=== PATIENT | female | born 1930 | race African-American/Black ===

== ENCOUNTER 2020-08-09 10:29 | Emergency (ER) | payer MEDICARE, MEDICAID ==
[~2020-08-09] VITALS: Ht 170.2 cm; Wt 82.0 kg
[2020-08-09 11:46] LABS: CHLORIDE 111 mEq/L (98-107)
[2020-08-09 13:16] LABS: BASOPHILS % 1.3 % (0.0-2.0); EOSINOPHILS % 9.3 % (0.0-5.0); HEMATOCRIT. 38.9 % (36.0-48.0); HEMOGLOBIN. 12.4 g/dL (12.0-16.0); LYMPHOCYTES % 25.5 % (20.0-50.0); MEAN CORPUSCULAR HEMOGLOBIN 26.4 pg (28.0-32.0); MEAN CORPUSCULAR VOLUME 82.4 fL (81.0-99.0); MONOCYTES % 5.1 % (2.0-8.0); NEUTROPHILS % 58.8 % (40.0-76.0); PLATELET 179 x1000/uL (130-400); RED BLOOD CELL COUNT 4.72 mill/uL (4.2-5.4); RED CELL DISTRIBUTION WIDTH 14.8 % (11.6-14.6)
[2020-08-09 14:37] VITALS: BP 135/75
== END 2020-08-09 15:43 | disposition home or self-care (01) ==
LOC: ER 10:45
DX: N93.9 Abnormal uterine and vaginal bleeding, unspecified (principal); R73.9 Hyperglycemia, unspecified; G82.22 Paraplegia, incomplete; I49.3 Ventricular premature depolarization
CPT/HCPCS: 36415; 76856; 80053; 85025; 93005; 99285

== ENCOUNTER 2021-03-07 18:22 | Inpatient (IN) | payer MEDICARE, MEDICAID ==
[~2021-03-07] VITALS: Ht 172.7 cm; Wt 83.5 kg
[2021-03-07] MEDS ORDERED: ACETAMINOPHEN 325MG TABLET PO STA (19:51)
[2021-03-07] MEDS ORDERED: VANCOMYCIN 1 G PREMIX 200 ML IV ONE (20:00)
[2021-03-07] MEDS ORDERED: SODIUM CHLORIDE 0.9% 1000ML BAG (SEPSIS BOLUS) IV ONE (20:00)
[2021-03-07] MEDS ORDERED: PIPERACILLIN/TAZ 3.375G PREMIX 50 ML IV ONE (20:00)
[2021-03-07 21:14] LABS: HEMATOCRIT. 31.4 % (36.0-48.0); HEMOGLOBIN. 10.2 g/dL (12.0-16.0); MEAN CORPUSCULAR VOLUME 82.9 fL (81.0-99.0); MEAN PLATELET VOLUME 8.8 fl (7.4-10.4); PLATELET 100 x1000/uL (130-400); RED BLOOD CELL COUNT 3.79 mill/uL (4.2-5.4); RED CELL DISTRIBUTION WIDTH 14.3 % (11.6-14.6)
[2021-03-07 21:22] LABS: CHLORIDE 116 mEq/L (98-107)
[2021-03-07 21:26] LABS: INR 1.4; PROTHROMBIN TIME 14.4 sec (9.6-11.0)
[2021-03-07] MEDS ORDERED: MAGNESIUM 2 G PREMIX 50 ML IV ONE (21:30)
[2021-03-07 21:51] LABS: PLATELET ESTIMATE DECREASED
[2021-03-07] MEDS ORDERED: HYDROCORTISONE SOD SUCCINATE 100 MG/2 ML VIAL IV ONE (22:45)
[2021-03-07] MEDS ORDERED: SODIUM CHLORIDE 0.9% 100 ML IV ONE (22:45)
[2021-03-07 22:58] LABS: CLARITY URINE TURBID (CLEAR); COLOR URINE YELLOW (YELLOW); KETONES URINE TRACE (NEGATIVE); LEUKOCYTE ESTERASE URINE 3+ (NEGATIVE); NITRITE URINE NEGATIVE (NEGATIVE); OCCULT BLOOD URINE 3+ (NEGATIVE); PH URINE 7.5 (4.5-8.0); PROTEIN URINE 1+ (NEGATIVE); SPECIFIC GRAVITY URINE 1.015 (1.005-1.030)
[2021-03-07] MEDS ORDERED: NOREPINEPHRINE 8MG/250ML PMX 250 ML IV ONE (23:15)
[2021-03-08] MEDS ORDERED: NOREPINEPHRINE 8MG/250ML PMX 250 ML IV PRN (06:00)
[2021-03-08] MEDS ORDERED: ONDANSETRON HCL 4MG/2ML INJ IV PRN (08:30)
[2021-03-08] MEDS ORDERED: CEFEPIME 1,000 MG in DEXTROSE 5% WATER 50 ML IV SCH (08:30)
[2021-03-08] MEDS: DEXTROSE 5% WATER 1,000 ML IV SCH ×2 (09:00→22:30)
[2021-03-08] MEDS ORDERED: NALOXONE HCL 0.4MG/ML VIAL IV PRN (09:15)
[2021-03-08] MEDS: METRONIDAZOLE 500 MG PREMIX 100 ML IV SCH ×2 (09:24→19:04)
[2021-03-08] MEDS: TRAMADOL 50MG TABLET PO PRN (09:24)
[2021-03-08] MEDS ORDERED: POTASSIUM CHLORIDE INJ 40 MEQ in DEXT 5% WATER 250 ML IV NR (11:00)
[2021-03-08] MEDS: CEFEPIME 1,000 MG in DEXTROSE 5% WATER 50 ML IV SCH (12:02)
[2021-03-08] MEDS: ACETAMINOPHEN 325MG TABLET PO PRN (20:30)
[2021-03-08 22:00] VITALS: BP 94/54
[2021-03-08 22:50] VITALS: BP 89/48
[2021-03-09] VITALS (20 sets, daily range): BP systolic 64–139; BP diastolic 38–81
[2021-03-09] MEDS ORDERED: DOPAMINE 400MG/250ML PREMIX 250 ML IV PRN (01:30)
[2021-03-09] MEDS: METRONIDAZOLE 500 MG PREMIX 100 ML IV SCH ×3 (01:56→17:00)
[2021-03-09] MEDS: ACETAMINOPHEN 325MG TABLET PO PRN (03:26)
[2021-03-09 06:53] LABS: HEMATOCRIT. 32.3 % (36.0-48.0); HEMOGLOBIN. 10.2 g/dL (12.0-16.0); MEAN CORPUSCULAR HEMOGLOBIN 26.7 pg (28.0-32.0); MEAN CORPUSCULAR VOLUME 84.5 fL (81.0-99.0); MEAN PLATELET VOLUME 9.6 fl (7.4-10.4); PLATELET 78 x1000/uL (130-400); RED BLOOD CELL COUNT 3.83 mill/uL (4.2-5.4); RED CELL DISTRIBUTION WIDTH 15.4 % (11.6-14.6)
[2021-03-09 07:19] LABS: CHLORIDE 117 mEq/L (98-107)
[2021-03-09] MEDS: DEXTROSE 5% WATER 1,000 ML IV SCH (09:26)
[2021-03-09] MEDS: CEFEPIME 1,000 MG in DEXTROSE 5% WATER 50 ML IV SCH (09:31)
[2021-03-09] MEDS ORDERED: POTASSIUM CHLORIDE 20MEQ TABLET SR PO NR (11:00)
[2021-03-09] MEDS ORDERED: AMIKACIN 500MG in SODIUM CHLORIDE 0.9% 100ML IV SCH (11:00)
[2021-03-09 14:52] LABS: PLATELET ESTIMATE DECREASED
[2021-03-09] MEDS ORDERED: NOREPINEPHRINE 8 MG in DEXTROSE 5% WATER 250 ML IV PRN (15:15)
[2021-03-09] MEDS ORDERED: CEFTRIAXONE 2 G PREMIX 50 ML IV SCH (20:00)
[2021-03-09] MEDS: TRAMADOL 50MG TABLET PO PRN (20:28)
[2021-03-09] MEDS: CEFTRIAXONE 2 G in DEXTROSE 5% WATER 50 ML IV SCH (23:00)
[2021-03-10] VITALS (12 sets, daily range): BP systolic 110–154; BP diastolic 59–87
[2021-03-10] MEDS ORDERED: EFEX1 PO (00:35)
[2021-03-10] MEDS ORDERED: MIRT-89 MT (00:35)
[2021-03-10] MEDS ORDERED: LOVA20TA2 PO (00:35)
[2021-03-10] MEDS ORDERED: OXYC10TA48 MT (00:35)
[2021-03-10] MEDS ORDERED: LORA-249 PO (00:35)
[2021-03-10] MEDS ORDERED: TIZA4TAB5 MT (00:35)
[2021-03-10] MEDS ORDERED: ERGO50CA PO (00:35)
[2021-03-10] MEDS ORDERED: GABA-529 PO (00:35)
[2021-03-10] MEDS: TRAMADOL 50MG TABLET PO PRN ×2 (02:33→20:43)
[2021-03-10] MEDS: DEXTROSE 5% WATER 1,000 ML IV SCH ×2 (02:33→20:44)
[2021-03-10 07:19] LABS: HEMATOCRIT. 30.3 % (36.0-48.0); HEMOGLOBIN. 9.9 g/dL (12.0-16.0); MEAN CORPUSCULAR HEMOGLOBIN 26.9 pg (28.0-32.0); MEAN CORPUSCULAR VOLUME 82.2 fL (81.0-99.0); MEAN PLATELET VOLUME 9.6 fl (7.4-10.4); PLATELET 73 x1000/uL (130-400); RED BLOOD CELL COUNT 3.68 mill/uL (4.2-5.4); RED CELL DISTRIBUTION WIDTH 14.8 % (11.6-14.6)
[2021-03-10 08:36] LABS: CHLORIDE 114 mEq/L (98-107)
[2021-03-10] MEDS ORDERED: NALOXONE HCL 0.4MG/ML VIAL IV PRN (11:00)
[2021-03-10] MEDS ORDERED: POTASSIUM CHLORIDE 20MEQ TABLET SR PO NR (11:00)
[2021-03-10 11:20] LABS: PLATELET ESTIMATE DECREASED
[2021-03-10] MEDS: DOCUSATE SODIUM 100MG CAPSULE PO SCH (16:15)
[2021-03-10] MEDS: CEFTRIAXONE 2 G in DEXTROSE 5% WATER 50 ML IV SCH (22:19)
[2021-03-11] VITALS (12 sets, daily range): BP systolic 132–168; BP diastolic 69–122
[2021-03-11] MEDS: DEXTROSE 5% WATER 1,000 ML IV SCH ×2 (03:40→10:33)
[2021-03-11 08:51] LABS: BASOPHILS % 0.2 % (0.0-2.0); EOSINOPHILS % 4.2 % (0.0-5.0); HEMATOCRIT. 33.4 % (36.0-48.0); HEMOGLOBIN. 10.7 g/dL (12.0-16.0); MEAN CORPUSCULAR HEMOGLOBIN 26.5 pg (28.0-32.0); MEAN CORPUSCULAR VOLUME 82.6 fL (81.0-99.0); MEAN PLATELET VOLUME 9.4 fl (7.4-10.4); MONOCYTES % 7.8 % (2.0-8.0); NEUTROPHILS % 74.8 % (40.0-76.0); PLATELET 80 x1000/uL (130-400); RED BLOOD CELL COUNT 4.04 mill/uL (4.2-5.4); RED CELL DISTRIBUTION WIDTH 14.7 % (11.6-14.6)
[2021-03-11 08:57] LABS: CHLORIDE 109 mEq/L (98-107)
[2021-03-11] MEDS: DOCUSATE SODIUM 100MG CAPSULE PO SCH ×2 (09:00→16:26)
[2021-03-11] MEDS: ZINC SULFATE 220 MG ( 50 ) CAPSULE PO SCH (09:01)
[2021-03-11] MEDS: ASCORBIC ACID 500 MG TABLET PO SCH (09:01)
[2021-03-11] MEDS: MULTIVITAMINS,THER W-MINERALS TABLET PO SCH (09:01)
[2021-03-11] MEDS ORDERED: POTASSIUM CHLORIDE 20MEQ/PACKET PO SCH (10:30)
[2021-03-11] MEDS ORDERED: CLONIDINE 0.1MG TABLET PO PRN (12:15)
[2021-03-11] MEDS: VENLAFAXINE HCL 37.5MG SR CAPSULE 24HR PO SCH (14:45)
[2021-03-11] MEDS: TRAMADOL 50MG TABLET PO PRN (14:45)
[2021-03-11] MEDS ORDERED: HYDROCODONE/ACETAMINOPHEN 10/325MG TABLET PO PRN (18:45)
[2021-03-11] MEDS: OXYCODONE HCL 10MG TABLET SR 12HR PO SCH (18:55)
[2021-03-11] MEDS ORDERED: LORAZEPAM 2MG/ML CPJ IV NR (20:00)
[2021-03-11] MEDS: MIRTAZAPINE 15MG TABLET PO SCH (21:00)
[2021-03-11] MEDS: CEFTRIAXONE 2 G in DEXTROSE 5% WATER 50 ML IV SCH (22:55)
[2021-03-12] VITALS (7 sets, daily range): BP systolic 115–194; BP diastolic 58–90
[2021-03-12] MEDS: DEXTROSE 5% WATER 1,000 ML IV SCH (00:33)
[2021-03-12] MEDS: MULTIVITAMINS,THER W-MINERALS TABLET PO SCH (09:10)
[2021-03-12] MEDS: DOCUSATE SODIUM 100MG CAPSULE PO SCH ×2 (09:11→18:24)
[2021-03-12] MEDS: OXYCODONE HCL 10MG TABLET SR 12HR PO SCH ×3 (09:11→18:24)
[2021-03-12] MEDS: ASCORBIC ACID 500 MG TABLET PO SCH (09:11)
[2021-03-12] MEDS: ZINC SULFATE 220 MG ( 50 ) CAPSULE PO SCH (09:11)
[2021-03-12] MEDS: VENLAFAXINE HCL 37.5MG SR CAPSULE 24HR PO SCH (09:17)
[2021-03-12] MEDS: AMLODIPINE 10MG TABLET PO SCH (12:35)
[2021-03-12] MEDS: MIRTAZAPINE 15MG TABLET PO SCH (20:59)
[2021-03-12] MEDS: CEFTRIAXONE 2 G in DEXTROSE 5% WATER 50 ML IV SCH (20:59)
[2021-03-13] VITALS (7 sets, daily range): BP systolic 105–131; BP diastolic 55–66
[2021-03-13] MEDS: VENLAFAXINE HCL 37.5MG SR CAPSULE 24HR PO SCH (08:58)
[2021-03-13] MEDS: MULTIVITAMINS,THER W-MINERALS TABLET PO SCH (08:58)
[2021-03-13] MEDS: ASCORBIC ACID 500 MG TABLET PO SCH (08:59)
[2021-03-13] MEDS: AMLODIPINE 10MG TABLET PO SCH (08:59)
[2021-03-13] MEDS: DOCUSATE SODIUM 100MG CAPSULE PO SCH ×2 (08:59→18:42)
[2021-03-13] MEDS: ZINC SULFATE 220 MG ( 50 ) CAPSULE PO SCH (08:59)
[2021-03-13] MEDS: OXYCODONE HCL 10MG TABLET SR 12HR PO SCH ×3 (09:00→18:40)
[2021-03-13] MEDS: MIRTAZAPINE 15MG TABLET PO SCH (21:41)
[2021-03-13] MEDS: CEFTRIAXONE 2 G in DEXTROSE 5% WATER 50 ML IV SCH (21:43)
[2021-03-14] VITALS: BP 125/61
[2021-03-14 04:00] VITALS: BP 142/66
[2021-03-14 07:34] LABS: BASOPHILS % 0.3 % (0.0-2.0); HEMATOCRIT. 33.1 % (36.0-48.0); LYMPHOCYTES % 15.8 % (20.0-50.0); MEAN CORPUSCULAR HEMOGLOBIN 26.9 pg (28.0-32.0); MEAN CORPUSCULAR VOLUME 80.8 fL (81.0-99.0); MEAN PLATELET VOLUME 9.4 fl (7.4-10.4); MONOCYTES % 7.9 % (2.0-8.0); PLATELET 148 x1000/uL (130-400); RED BLOOD CELL COUNT 4.09 mill/uL (4.2-5.4); RED CELL DISTRIBUTION WIDTH 14.4 % (11.6-14.6)
[2021-03-14 08:00] VITALS: BP 115/54
[2021-03-14 08:08] LABS: CHLORIDE 106 mEq/L (98-107)
[2021-03-14] MEDS ORDERED: POTASSIUM CHLORIDE 20MEQ TABLET SR PO NR (10:15)
[2021-03-14] MEDS: VENLAFAXINE HCL 37.5MG SR CAPSULE 24HR PO SCH (10:25)
[2021-03-14] MEDS: MULTIVITAMINS,THER W-MINERALS TABLET PO SCH (10:25)
[2021-03-14] MEDS: DOCUSATE SODIUM 100MG CAPSULE PO SCH ×2 (10:26→18:16)
[2021-03-14] MEDS: ASCORBIC ACID 500 MG TABLET PO SCH (10:26)
[2021-03-14] MEDS: ZINC SULFATE 220 MG ( 50 ) CAPSULE PO SCH (10:26)
[2021-03-14] MEDS: AMLODIPINE 10MG TABLET PO SCH (10:27)
[2021-03-14] MEDS: OXYCODONE HCL 10MG TABLET SR 12HR PO SCH ×3 (10:27→18:19)
[2021-03-14 12:00] VITALS: BP 118/61
[2021-03-14 16:00] VITALS: BP 133/61
[2021-03-14 20:00] VITALS: BP 105/61
[2021-03-14] MEDS ORDERED: NALOXONE HCL 0.4MG/ML VIAL IV PRN (20:30)
[2021-03-14] MEDS: CEFTRIAXONE 2 G in DEXTROSE 5% WATER 50 ML IV SCH (21:36)
[2021-03-14] MEDS: MIRTAZAPINE 15MG TABLET PO SCH (21:36)
[2021-03-15] VITALS: BP 107/51
[2021-03-15 04:00] VITALS: BP 117/53
[2021-03-15] MEDS ORDERED: POTASSIUM CHLORIDE 20MEQ TABLET SR PO ONE (07:30)
[2021-03-15 08:00] VITALS: BP 121/57
[2021-03-15] MEDS: VENLAFAXINE HCL 37.5MG SR CAPSULE 24HR PO SCH (08:56)
[2021-03-15] MEDS: MULTIVITAMINS,THER W-MINERALS TABLET PO SCH (08:56)
[2021-03-15] MEDS: ZINC SULFATE 220 MG ( 50 ) CAPSULE PO SCH (08:56)
[2021-03-15] MEDS: ASCORBIC ACID 500 MG TABLET PO SCH (08:56)
[2021-03-15] MEDS: DOCUSATE SODIUM 100MG CAPSULE PO SCH ×2 (08:56→17:21)
[2021-03-15] MEDS: AMLODIPINE 10MG TABLET PO SCH (08:57)
[2021-03-15] MEDS: OXYCODONE HCL 10MG TABLET SR 12HR PO SCH ×3 (08:58→17:24)
[2021-03-15 12:00] VITALS: BP 104/53
[2021-03-15 16:00] VITALS: BP 105/46
[2021-03-15 20:00] VITALS: BP 106/51
[2021-03-15] MEDS: ACETAMINOPHEN 325MG TABLET PO PRN (20:38)
[2021-03-15] MEDS: MIRTAZAPINE 15MG TABLET PO SCH (20:43)
[2021-03-15] MEDS: CEFTRIAXONE 2 G in DEXTROSE 5% WATER 50 ML IV SCH (21:32)
[2021-03-16] VITALS: BP 120/57
[2021-03-16 04:00] VITALS: BP 112/57
[2021-03-16 08:00] VITALS: BP 132/59
[2021-03-16] MEDS: MULTIVITAMINS,THER W-MINERALS TABLET PO SCH (09:59)
[2021-03-16] MEDS: DOCUSATE SODIUM 100MG CAPSULE PO SCH ×2 (09:59→17:31)
[2021-03-16] MEDS: OXYCODONE HCL 10MG TABLET SR 12HR PO SCH ×3 (10:00→17:32)
[2021-03-16] MEDS: VENLAFAXINE HCL 37.5MG SR CAPSULE 24HR PO SCH (10:00)
[2021-03-16] MEDS: ZINC SULFATE 220 MG ( 50 ) CAPSULE PO SCH (10:00)
[2021-03-16] MEDS: AMLODIPINE 10MG TABLET PO SCH (10:01)
[2021-03-16] MEDS: ASCORBIC ACID 500 MG TABLET PO SCH (10:01)
[2021-03-16 12:00] VITALS: BP 111/63
[2021-03-16 13:44] LABS: BASOPHILS % 0.6 % (0.0-2.0); EOSINOPHILS % 5.1 % (0.0-5.0); HEMATOCRIT. 37.6 % (36.0-48.0); LYMPHOCYTES % 13.4 % (20.0-50.0); MEAN CORPUSCULAR HEMOGLOBIN 26.3 pg (28.0-32.0); MEAN CORPUSCULAR VOLUME 82.5 fL (81.0-99.0); MEAN PLATELET VOLUME 8.7 fl (7.4-10.4); MONOCYTES % 6.2 % (2.0-8.0); NEUTROPHILS % 74.7 % (40.0-76.0); PLATELET 275 x1000/uL (130-400); RED BLOOD CELL COUNT 4.56 mill/uL (4.2-5.4); RED CELL DISTRIBUTION WIDTH 14.8 % (11.6-14.6)
[2021-03-16 13:51] LABS: CHLORIDE 105 mEq/L (98-107)
[2021-03-16 16:00] VITALS: BP 98/53
[2021-03-16 20:00] VITALS: BP 105/40
[2021-03-16] MEDS: CEFTRIAXONE 2 G in DEXTROSE 5% WATER 50 ML IV SCH (21:00)
[2021-03-16] MEDS: MIRTAZAPINE 15MG TABLET PO SCH (21:00)
[2021-03-17] VITALS: BP 93/45
[2021-03-17 04:00] VITALS: BP 119/48
[2021-03-17 08:00] VITALS: BP 123/94
[2021-03-17] MEDS: ZINC SULFATE 220 MG ( 50 ) CAPSULE PO SCH (08:37)
[2021-03-17] MEDS: VENLAFAXINE HCL 37.5MG SR CAPSULE 24HR PO SCH (08:37)
[2021-03-17] MEDS: DOCUSATE SODIUM 100MG CAPSULE PO SCH ×2 (08:37→16:28)
[2021-03-17] MEDS: ASCORBIC ACID 500 MG TABLET PO SCH (08:37)
[2021-03-17] MEDS: AMLODIPINE 10MG TABLET PO SCH (08:38)
[2021-03-17] MEDS: MULTIVITAMINS,THER W-MINERALS TABLET PO SCH (08:38)
[2021-03-17] MEDS: OXYCODONE HCL 10MG TABLET SR 12HR PO SCH ×3 (08:39→16:29)
[2021-03-17 12:00] VITALS: BP 115/61
[2021-03-17 16:00] VITALS: BP 107/61
[2021-03-17 20:00] VITALS: BP 105/59
[2021-03-17] MEDS: MIRTAZAPINE 15MG TABLET PO SCH (22:49)
[2021-03-17] MEDS: CEFTRIAXONE 2 G in DEXTROSE 5% WATER 50 ML IV SCH (22:50)
[2021-03-18] VITALS: BP 99/55
[2021-03-18 04:00] VITALS: BP 129/75
[2021-03-18] MEDS: AMLODIPINE 10MG TABLET PO SCH (09:00)
[2021-03-18] MEDS: ASCORBIC ACID 500 MG TABLET PO SCH (09:14)
[2021-03-18] MEDS: ZINC SULFATE 220 MG ( 50 ) CAPSULE PO SCH (09:14)
[2021-03-18] MEDS: VENLAFAXINE HCL 37.5MG SR CAPSULE 24HR PO SCH (09:15)
[2021-03-18] MEDS: MULTIVITAMINS,THER W-MINERALS TABLET PO SCH (09:15)
[2021-03-18] MEDS: OXYCODONE HCL 10MG TABLET SR 12HR PO SCH ×3 (09:16→18:09)
[2021-03-18] MEDS: DOCUSATE SODIUM 100MG CAPSULE PO SCH ×2 (09:17→18:08)
[2021-03-18 20:00] VITALS: BP 110/65
[2021-03-18] MEDS: MIRTAZAPINE 15MG TABLET PO SCH (21:34)
[2021-03-18] MEDS: CEFTRIAXONE 2 G in DEXTROSE 5% WATER 50 ML IV SCH (21:34)
[2021-03-18 23:58] VITALS: BP 97/55
[2021-03-19 05:10] VITALS: BP 111/64
[2021-03-19 08:00] VITALS: BP 114/58
[2021-03-19] MEDS: MULTIVITAMINS,THER W-MINERALS TABLET PO SCH (09:21)
[2021-03-19] MEDS: DOCUSATE SODIUM 100MG CAPSULE PO SCH ×2 (09:21→17:32)
[2021-03-19] MEDS: VENLAFAXINE HCL 37.5MG SR CAPSULE 24HR PO SCH (09:21)
[2021-03-19] MEDS: ASCORBIC ACID 500 MG TABLET PO SCH (09:22)
[2021-03-19] MEDS: AMLODIPINE 10MG TABLET PO SCH (09:23)
[2021-03-19] MEDS: ZINC SULFATE 220 MG ( 50 ) CAPSULE PO SCH (09:23)
[2021-03-19] MEDS: OXYCODONE HCL 10MG TABLET SR 12HR PO SCH ×3 (09:23→17:38)
[2021-03-19 12:00] VITALS: BP 112/65
[2021-03-19 16:00] VITALS: BP 112/90
[2021-03-19 20:00] VITALS: BP 111/61
[2021-03-19] MEDS: CEFTRIAXONE 2 G in DEXTROSE 5% WATER 50 ML IV SCH (21:46)
[2021-03-19] MEDS: MIRTAZAPINE 15MG TABLET PO SCH (21:46)
[2021-03-20] VITALS: BP 116/61
[2021-03-20] MEDS: ACETAMINOPHEN 325MG TABLET PO PRN (01:32)
[2021-03-20 04:00] VITALS: BP 108/52
[2021-03-20 08:00] VITALS: BP 112/63
[2021-03-20] MEDS: DOCUSATE SODIUM 100MG CAPSULE PO SCH ×2 (08:44→17:26)
[2021-03-20] MEDS: VENLAFAXINE HCL 37.5MG SR CAPSULE 24HR PO SCH (08:45)
[2021-03-20] MEDS: AMLODIPINE 10MG TABLET PO SCH (08:46)
[2021-03-20] MEDS: ZINC SULFATE 220 MG ( 50 ) CAPSULE PO SCH (08:46)
[2021-03-20] MEDS: ASCORBIC ACID 500 MG TABLET PO SCH (08:47)
[2021-03-20] MEDS: OXYCODONE HCL 10MG TABLET SR 12HR PO SCH ×3 (08:47→17:26)
[2021-03-20] MEDS: MULTIVITAMINS,THER W-MINERALS TABLET PO SCH (08:47)
[2021-03-20 12:00] VITALS: BP 104/63
[2021-03-20 16:00] VITALS: BP 106/57
[2021-03-20 20:00] VITALS: BP 97/52
[2021-03-20] MEDS: CEFTRIAXONE 2 G in DEXTROSE 5% WATER 50 ML IV SCH (21:48)
[2021-03-20] MEDS: MIRTAZAPINE 15MG TABLET PO SCH (21:48)
[2021-03-21] VITALS: BP 115/58
[2021-03-21 04:00] VITALS: BP 110/53
[2021-03-21 08:00] VITALS: BP 128/50
[2021-03-21] MEDS: DOCUSATE SODIUM 100MG CAPSULE PO SCH ×2 (09:00→18:05)
[2021-03-21] MEDS: MULTIVITAMINS,THER W-MINERALS TABLET PO SCH (10:30)
[2021-03-21] MEDS: VENLAFAXINE HCL 37.5MG SR CAPSULE 24HR PO SCH (10:31)
[2021-03-21] MEDS: AMLODIPINE 10MG TABLET PO SCH (10:32)
[2021-03-21] MEDS: ZINC SULFATE 220 MG ( 50 ) CAPSULE PO SCH (10:32)
[2021-03-21] MEDS: ASCORBIC ACID 500 MG TABLET PO SCH (10:35)
[2021-03-21] MEDS: OXYCODONE HCL 10MG TABLET SR 12HR PO SCH ×3 (10:35→18:24)
[2021-03-21 16:00] VITALS: BP 107/56
[2021-03-21 20:00] VITALS: BP 111/42
[2021-03-21] MEDS: MIRTAZAPINE 15MG TABLET PO SCH (21:39)
[2021-03-21] MEDS: CEFTRIAXONE 2 G in DEXTROSE 5% WATER 50 ML IV SCH (21:39)
[2021-03-22] VITALS: BP 97/41
[2021-03-22 04:00] VITALS: BP 94/99
[2021-03-22 08:16] VITALS: BP 101/56
[2021-03-22] MEDS: AMLODIPINE 10MG TABLET PO SCH (09:00)
[2021-03-22] MEDS: OXYCODONE HCL 10MG TABLET SR 12HR PO SCH ×2 (09:00→22:41)
[2021-03-22] MEDS: DOCUSATE SODIUM 100MG CAPSULE PO SCH ×2 (10:51→17:28)
[2021-03-22] MEDS: MULTIVITAMINS,THER W-MINERALS TABLET PO SCH (10:52)
[2021-03-22] MEDS: ZINC SULFATE 220 MG ( 50 ) CAPSULE PO SCH (10:52)
[2021-03-22] MEDS: VENLAFAXINE HCL 37.5MG SR CAPSULE 24HR PO SCH (10:52)
[2021-03-22] MEDS: ASCORBIC ACID 500 MG TABLET PO SCH (10:52)
[2021-03-22 12:12] VITALS: BP 98/53
[2021-03-22] MEDS: ACETAMINOPHEN 325MG TABLET PO PRN (15:48)
[2021-03-22 16:00] VITALS: BP 106/52
[2021-03-22 20:00] VITALS: BP 109/57
[2021-03-22] MEDS: MIRTAZAPINE 15MG TABLET PO SCH (21:57)
[2021-03-23] VITALS: BP 117/50
[2021-03-23 04:00] VITALS: BP 99/52
[2021-03-23 08:00] VITALS: BP 110/54
[2021-03-23] MEDS: OXYCODONE HCL 10MG TABLET SR 12HR PO SCH ×3 (09:00→18:11)
[2021-03-23] MEDS: AMLODIPINE 10MG TABLET PO SCH (09:00)
[2021-03-23] MEDS: DOCUSATE SODIUM 100MG CAPSULE PO SCH ×2 (10:34→18:06)
[2021-03-23] MEDS: ASCORBIC ACID 500 MG TABLET PO SCH (10:34)
[2021-03-23] MEDS: MULTIVITAMINS,THER W-MINERALS TABLET PO SCH (10:35)
[2021-03-23] MEDS: ZINC SULFATE 220 MG ( 50 ) CAPSULE PO SCH (10:35)
[2021-03-23] MEDS: VENLAFAXINE HCL 37.5MG SR CAPSULE 24HR PO SCH (10:36)
[2021-03-23 12:00] VITALS: BP 122/70
[2021-03-23 16:00] VITALS: BP 115/53
[2021-03-23 20:00] VITALS: BP 117/59
[2021-03-23] MEDS: MIRTAZAPINE 15MG TABLET PO SCH (20:00)
[2021-03-24] VITALS: BP 100/65
[2021-03-24] MEDS: ACETAMINOPHEN 325MG TABLET PO PRN ×2 (01:47→21:31)
[2021-03-24 04:00] VITALS: BP 104/56
[2021-03-24 08:00] VITALS: BP 120/66
[2021-03-24] MEDS: DOCUSATE SODIUM 100MG CAPSULE PO SCH ×2 (09:56→17:37)
[2021-03-24] MEDS: MULTIVITAMINS,THER W-MINERALS TABLET PO SCH (09:57)
[2021-03-24] MEDS: ZINC SULFATE 220 MG ( 50 ) CAPSULE PO SCH (09:57)
[2021-03-24] MEDS: ASCORBIC ACID 500 MG TABLET PO SCH (09:57)
[2021-03-24] MEDS: OXYCODONE HCL 10MG TABLET SR 12HR PO SCH ×3 (09:57→17:37)
[2021-03-24] MEDS: AMLODIPINE 10MG TABLET PO SCH (09:57)
[2021-03-24] MEDS: VENLAFAXINE HCL 37.5MG SR CAPSULE 24HR PO SCH (09:58)
[2021-03-24 12:00] VITALS: BP 102/53
[2021-03-24 16:00] VITALS: BP 100/52
[2021-03-24 20:00] VITALS: BP 108/57
[2021-03-24] MEDS: MIRTAZAPINE 15MG TABLET PO SCH (21:30)
[2021-03-25] VITALS: BP 89/49
[2021-03-25 04:00] VITALS: BP 100/51
[2021-03-25 08:00] VITALS: BP 127/65
[2021-03-25] MEDS: AMLODIPINE 10MG TABLET PO SCH (08:39)
[2021-03-25] MEDS: ZINC SULFATE 220 MG ( 50 ) CAPSULE PO SCH (08:39)
[2021-03-25] MEDS: MULTIVITAMINS,THER W-MINERALS TABLET PO SCH (08:39)
[2021-03-25] MEDS: DOCUSATE SODIUM 100MG CAPSULE PO SCH ×2 (08:39→16:51)
[2021-03-25] MEDS: ASCORBIC ACID 500 MG TABLET PO SCH (08:39)
[2021-03-25] MEDS: VENLAFAXINE HCL 37.5MG SR CAPSULE 24HR PO SCH (08:39)
[2021-03-25] MEDS: OXYCODONE HCL 10MG TABLET SR 12HR PO SCH ×3 (08:40→16:52)
[2021-03-25 12:00] VITALS: BP 98/51
[2021-03-25 16:00] VITALS: BP 103/54
[2021-03-25 20:00] VITALS: BP_SYST 105; BP_SYST 146; BP_DIAS 59; BP_DIAS 81
[2021-03-25] MEDS: MIRTAZAPINE 15MG TABLET PO SCH (20:33)
[2021-03-26] VITALS: BP 97/67
[2021-03-26 07:52] LABS: BASOPHILS % 0.7 % (0.0-2.0); EOSINOPHILS % 4.9 % (0.0-5.0); HEMATOCRIT. 34.1 % (36.0-48.0); HEMOGLOBIN. 11.1 g/dL (12.0-16.0); LYMPHOCYTES % 37.9 % (20.0-50.0); MEAN CORPUSCULAR HEMOGLOBIN 26.7 pg (28.0-32.0); MEAN CORPUSCULAR VOLUME 81.8 fL (81.0-99.0); MEAN PLATELET VOLUME 8.4 fl (7.4-10.4); MONOCYTES % 6.7 % (2.0-8.0); NEUTROPHILS % 49.8 % (40.0-76.0); PLATELET 292 x1000/uL (130-400); RED BLOOD CELL COUNT 4.16 mill/uL (4.2-5.4); RED CELL DISTRIBUTION WIDTH 14.6 % (11.6-14.6)
[2021-03-26 08:00] VITALS: BP 110/60
[2021-03-26 08:01] LABS: CHLORIDE 109 mEq/L (98-107)
[2021-03-26] MEDS: VENLAFAXINE HCL 37.5MG SR CAPSULE 24HR PO SCH (09:33)
[2021-03-26] MEDS: DOCUSATE SODIUM 100MG CAPSULE PO SCH ×2 (09:35→18:11)
[2021-03-26] MEDS: MULTIVITAMINS,THER W-MINERALS TABLET PO SCH (09:35)
[2021-03-26] MEDS: AMLODIPINE 10MG TABLET PO SCH (09:35)
[2021-03-26] MEDS: ASCORBIC ACID 500 MG TABLET PO SCH (09:35)
[2021-03-26] MEDS: OXYCODONE HCL 10MG TABLET SR 12HR PO SCH ×3 (09:35→18:11)
[2021-03-26] MEDS: ZINC SULFATE 220 MG ( 50 ) CAPSULE PO SCH (09:38)
[2021-03-26 12:00] VITALS: BP 90/41
[2021-03-26 16:00] VITALS: BP 154/57
[2021-03-26 20:00] VITALS: BP 121/61
[2021-03-26] MEDS: MIRTAZAPINE 15MG TABLET PO SCH (21:40)
[2021-03-27] VITALS: BP 110/53
[2021-03-27 04:00] VITALS: BP 112/64
[2021-03-27 08:00] VITALS: BP 114/63
[2021-03-27] MEDS: ZINC SULFATE 220 MG ( 50 ) CAPSULE PO SCH (09:05)
[2021-03-27] MEDS: ASCORBIC ACID 500 MG TABLET PO SCH (09:06)
[2021-03-27] MEDS: DOCUSATE SODIUM 100MG CAPSULE PO SCH ×2 (09:06→18:19)
[2021-03-27] MEDS: MULTIVITAMINS,THER W-MINERALS TABLET PO SCH (09:06)
[2021-03-27] MEDS: OXYCODONE HCL 10MG TABLET SR 12HR PO SCH ×3 (09:07→18:20)
[2021-03-27] MEDS: AMLODIPINE 10MG TABLET PO SCH (09:07)
[2021-03-27] MEDS: VENLAFAXINE HCL 37.5MG SR CAPSULE 24HR PO SCH (09:13)
[2021-03-27 12:00] VITALS: BP 124/98
[2021-03-27 16:00] VITALS: BP 104/52
[2021-03-27 20:00] VITALS: BP 101/51
[2021-03-27] MEDS: MIRTAZAPINE 15MG TABLET PO SCH (21:53)
[2021-03-28] VITALS: BP 99/56
[2021-03-28 04:00] VITALS: BP 93/58
[2021-03-28 08:00] VITALS: BP 93/46
[2021-03-28] MEDS: ZINC SULFATE 220 MG ( 50 ) CAPSULE PO SCH (09:22)
[2021-03-28] MEDS: VENLAFAXINE HCL 37.5MG SR CAPSULE 24HR PO SCH (09:22)
[2021-03-28] MEDS: AMLODIPINE 10MG TABLET PO SCH (09:23)
[2021-03-28] MEDS: MULTIVITAMINS,THER W-MINERALS TABLET PO SCH (09:23)
[2021-03-28] MEDS: DOCUSATE SODIUM 100MG CAPSULE PO SCH ×2 (09:23→17:54)
[2021-03-28] MEDS: ASCORBIC ACID 500 MG TABLET PO SCH (09:23)
[2021-03-28] MEDS: ACETAMINOPHEN 325MG TABLET PO PRN (09:24)
[2021-03-28 12:00] VITALS: BP 101/50
[2021-03-28 16:00] VITALS: BP 104/57
[2021-03-28 20:00] VITALS: BP 108/66
[2021-03-28] MEDS: MIRTAZAPINE 15MG TABLET PO SCH (21:22)
[2021-03-29] VITALS: BP 102/50
[2021-03-29 04:00] VITALS: BP 128/53
[2021-03-29] MEDS: ACETAMINOPHEN 325MG TABLET PO PRN ×3 (05:35→22:50)
[2021-03-29 08:00] VITALS: BP 118/58
[2021-03-29] MEDS: MULTIVITAMINS,THER W-MINERALS TABLET PO SCH (08:43)
[2021-03-29] MEDS: DOCUSATE SODIUM 100MG CAPSULE PO SCH ×2 (08:43→18:07)
[2021-03-29] MEDS: VENLAFAXINE HCL 37.5MG SR CAPSULE 24HR PO SCH (08:43)
[2021-03-29] MEDS: ZINC SULFATE 220 MG ( 50 ) CAPSULE PO SCH (08:44)
[2021-03-29] MEDS: ASCORBIC ACID 500 MG TABLET PO SCH (08:44)
[2021-03-29] MEDS: AMLODIPINE 10MG TABLET PO SCH (08:44)
[2021-03-29 12:00] VITALS: BP 112/59
[2021-03-29 16:00] VITALS: BP 115/65
[2021-03-29 20:00] VITALS: BP 117/62
[2021-03-29] MEDS: MIRTAZAPINE 15MG TABLET PO SCH (20:43)
[2021-03-30] VITALS: BP 112/59
[2021-03-30 04:00] VITALS: BP 107/68
[2021-03-30 08:00] VITALS: BP 122/61
[2021-03-30] MEDS: ASCORBIC ACID 500 MG TABLET PO SCH (09:43)
[2021-03-30] MEDS: VENLAFAXINE HCL 37.5MG SR CAPSULE 24HR PO SCH (09:43)
[2021-03-30] MEDS: ZINC SULFATE 220 MG ( 50 ) CAPSULE PO SCH (09:43)
[2021-03-30] MEDS: AMLODIPINE 10MG TABLET PO SCH (09:43)
[2021-03-30] MEDS: DOCUSATE SODIUM 100MG CAPSULE PO SCH ×2 (09:43→17:00)
[2021-03-30] MEDS: MULTIVITAMINS,THER W-MINERALS TABLET PO SCH (09:43)
[2021-03-30 12:00] VITALS: BP 97/51
[2021-03-30 16:00] VITALS: BP 110/62
[2021-03-30] MEDS ORDERED: CEFTRIAXONE 2 G in DEXTROSE 5% WATER 50 ML IV SCH (19:00)
[2021-03-31] MEDS ORDERED: MIRT-89 MT (16:18)
[2021-03-31] MEDS ORDERED: AMLO10TA80 PO (16:18)
[2021-03-31] MEDS ORDERED: DOCU-150 PO (16:18)
[2021-03-31] MEDS ORDERED: ASCO500T20 PO (16:18)
[2021-03-31] MEDS ORDERED: ZINC220C2 PO (16:18)
== END 2021-03-30 21:10 | disposition home health service (06) | DRG 871 ==
LOC: ER 18:22 → EDBEDREQ 23:21 → EDBEDREQSVC 23:21 → EDBEDREQTM 23:21 → MICUSO 03-08 → 3WST 03-08 19:40 → 6EST 03-12 02:41
PROVIDERS: ADMIT Internal Medicine; ATTEND Internal Medicine
PROC: 02HV33Z Insertion of Infusion Device into Superior Vena Cava, Percutaneous Approach (ICD-10-PCS; principal; 2021-03-08)
PROC: B548ZZA Ultrasonography of Superior Vena Cava, Guidance (ICD-10-PCS; 2021-03-08)
DX: A41.59 Other Gram-negative sepsis (principal); R65.21 Severe sepsis with septic shock; E43 Unspecified severe protein-calorie malnutrition; N39.0 Urinary tract infection, site not specified; E87.1 Hypo-osmolality and hyponatremia; G82.20 Paraplegia, unspecified; I82.413 Acute embolism and thrombosis of femoral vein, bilateral; I82.491 Acute embolism and thrombosis of other specified deep vein of right lower extremity; D64.9 Anemia, unspecified; L89.896 Pressure-induced deep tissue damage of other site; R53.81 Other malaise; L89.156 Pressure-induced deep tissue damage of sacral region; E11.649 Type 2 diabetes mellitus with hypoglycemia without coma; R94.31 Abnormal electrocardiogram [ECG] [EKG]; E87.6 Hypokalemia; E87.8 Other disorders of electrolyte and fluid balance, not elsewhere classified; I10 Essential (primary) hypertension; Z95.828 Presence of other vascular implants and grafts; Z88.0 Allergy status to penicillin; Z88.6 Allergy status to analgesic agent; Z88.8 Allergy status to other drugs, medicaments and biological substances; Z68.28 Body mass index [BMI] 28.0-28.9, adult
CPT/HCPCS: 36415; 70551; 71045; 74018; 76700; 76937; 80048; 80053; 81003; 82040; 82962; 83036; 83605; 83880; 84134; 84145; 84484; 85025; 87077; 87186; 92610; 93005; 93970; 97162; 99291; A6261; C1725; J0278; J0692; J0696; J1720; J2060; J2543; J3370; J3475; J3480; J3490; J7030; J7040; J7050; J7060; J7070; A4315

== ENCOUNTER 2021-04-03 21:12 | Inpatient (IN) | payer MEDICARE, MEDICAID ==
[~2021-04-03] VITALS: Ht 157.5 cm; Wt 69.4 kg
[~2021-04-03 21:12] MED LIST: AMLO10TA80 PO; ASCO500T20 PO; DOCU-150 PO; EFEX1 PO; ERGO50CA PO; GABA-529 PO; LORA-249 PO; LOVA20TA2 PO; MIRT-89 MT; OXYC10TA48 MT; TIZA4TAB5 MT; ZINC220C2 PO
[2021-04-03 22:41] LABS: HEMATOCRIT. 34.2 % (36.0-48.0); HEMOGLOBIN. 11.2 g/dL (12.0-16.0); MEAN CORPUSCULAR HEMOGLOBIN 26.9 pg (28.0-32.0); MEAN CORPUSCULAR VOLUME 82.4 fL (81.0-99.0); MEAN PLATELET VOLUME 9.3 fl (7.4-10.4); PLATELET 199 x1000/uL (130-400); RED BLOOD CELL COUNT 4.15 mill/uL (4.2-5.4); RED CELL DISTRIBUTION WIDTH 15.3 % (11.6-14.6)
[2021-04-03] MEDS ORDERED: FUROSEMIDE 40MG/4ML VIAL IV ONE (22:45)
[2021-04-03 22:47] LABS: CHLORIDE 102 mEq/L (98-107)
[2021-04-03] MEDS ORDERED: VANCOMYCIN 1G PREMIX 200 ML IV ONE (23:00)
[2021-04-03] MEDS ORDERED: LEVOFLOXACIN 750MG PREMIX 150 ML IV ONE (23:00)
[2021-04-03 23:13] LABS: PLATELET ESTIMATE NORMAL
[2021-04-03] MEDS ORDERED: SODIUM CHLORIDE 0.9% 1,000 ML IV ONE (23:30)
[2021-04-04] MEDS ORDERED: IOHEXOL-350 100 ML BOTTLE ONE (06:05)
[2021-04-04] MEDS: ACETAMINOPHEN 325MG TABLET PO PRN (07:00)
[2021-04-04] MEDS ORDERED: ONDANSETRON HCL 4MG/2ML INJ IV PRN (08:00)
[2021-04-04] MEDS ORDERED: ACETAMINOPHEN 325MG TABLET PO PRN (08:00)
[2021-04-04] MEDS: DEXAMETHASONE 10 MG/ML VIAL IV SCH (08:59)
[2021-04-04] MEDS: ENOXAPARIN 30MG/0.3ML SYR SUBCUT SCH (10:02)
[2021-04-04 12:10] VITALS: BP 121/58
[2021-04-04 12:20] VITALS: BP 121/58
[2021-04-04] MEDS ORDERED: DILTIAZEM HCL 5MG/ML 5ML VIAL IV SCH (14:00)
[2021-04-04] MEDS: DILTIAZEM HCL 30MG TABLET PO SCH ×2 (15:29→21:14)
[2021-04-04 16:00] VITALS: BP 125/66
[2021-04-04] MEDS: DOXYCYCLINE 100 MG in DEXT 5% WATER 100 ML IV SCH (16:49)
[2021-04-04] MEDS: CEFEPIME 2,000 MG in DEXT 5% WATER 100 ML IV SCH (16:49)
[2021-04-04 20:00] VITALS: BP 103/51
[2021-04-04] MEDS: TIZANIDINE HCL 2MG TABLET PO SCH (20:24)
[2021-04-04] MEDS: MIRTAZAPINE 15MG TABLET PO SCH (20:24)
[2021-04-04] MEDS: ATORVASTATIN CALCIUM 20MG TABLET PO SCH (20:24)
[2021-04-04] MEDS: VENLAFAXINE HCL 37.5MG TABLET PO SCH (21:06)
[2021-04-04] MEDS: GABAPENTIN 100MG CAPSULE PO SCH (21:17)
[2021-04-04] MEDS ORDERED: LEVOFLOXACIN 250MG PREMIX 50 ML IV SCH (22:00)
[2021-04-04] MEDS ORDERED: LEVOFLOXACIN 500MG PREMIX 100 ML IV SCH (22:00)
[2021-04-05] VITALS: BP 109/64
[2021-04-05 04:00] VITALS: BP 121/64
[2021-04-05] MEDS: CEFEPIME 2,000 MG in DEXT 5% WATER 100 ML IV SCH ×2 (04:01→15:39)
[2021-04-05] MEDS: DOXYCYCLINE 100 MG in DEXT 5% WATER 100 ML IV SCH ×2 (04:45→16:11)
[2021-04-05] MEDS: DILTIAZEM HCL 30MG TABLET PO SCH ×3 (06:11→20:36)
[2021-04-05] MEDS: GABAPENTIN 100MG CAPSULE PO SCH ×3 (06:12→20:35)
[2021-04-05] MEDS: VENLAFAXINE HCL 37.5MG TABLET PO SCH ×2 (06:13→16:11)
[2021-04-05 08:00] VITALS: BP 107/63
[2021-04-05] MEDS: AMLODIPINE 10MG TABLET PO SCH (09:00)
[2021-04-05] MEDS: DOCUSATE SODIUM 100MG CAPSULE PO SCH ×2 (09:35→16:11)
[2021-04-05] MEDS: DEXAMETHASONE 10 MG/ML VIAL IV SCH (09:35)
[2021-04-05] MEDS: ZINC SULFATE 220 MG ( 50 ) CAPSULE PO SCH (09:36)
[2021-04-05] MEDS: ENOXAPARIN 30MG/0.3ML SYR SUBCUT SCH (09:36)
[2021-04-05] MEDS: ASCORBIC ACID 500 MG TABLET PO SCH (09:36)
[2021-04-05 11:17] LABS: BG BASE EXCESS -2.1 mmol/L (-2.0-2.0); BG CARBOXYHEMOGLOBIN 0.3 % (0.5-1.5); BG DEOXYHEMOGLOBIN 17.4 % (0.0-5.0); BG FRACTION INSPIRED OXYGEN 21; BG HCO3 ACT 20.6 mmol/L (22.0-26.0); BG METHEMOGLOBIN 0.3 % (0.0-1.5); BG OXYGEN SATURATION 82.5 % (92.0-98.5); BG PCO2 28.7 mmHg (35.0-45.0); BG PH 7.473 (7.350-7.450); BG PO2 42.6 mmHg (75.0-100.0); BG SAMPLE SITE RIGHT BRACHIAL; BG TOTAL HEMOGLOBIN 11.2 g/dL (12.0-18.0); BG VENT MODE ROOM AIR
[2021-04-05 12:00] VITALS: BP 116/65
[2021-04-05 15:58] VITALS: BP 125/62
[2021-04-05 20:00] VITALS: BP 124/71
[2021-04-05] MEDS: TIZANIDINE HCL 2MG TABLET PO SCH (20:35)
[2021-04-05] MEDS: MIRTAZAPINE 15MG TABLET PO SCH (20:35)
[2021-04-05] MEDS: ATORVASTATIN CALCIUM 20MG TABLET PO SCH (20:35)
[2021-04-05] MEDS: ALBUTEROL 6.7GM HFA INHALER ORI PRN (20:51)
[2021-04-06 00:28] VITALS: BP 152/98
[2021-04-06] MEDS: ALBUTEROL 6.7GM HFA INHALER ORI PRN ×4 (00:41→18:13)
[2021-04-06] MEDS: CEFEPIME 2,000 MG in DEXT 5% WATER 100 ML IV SCH ×2 (04:07→17:35)
[2021-04-06 04:09] VITALS: BP 133/60
[2021-04-06] MEDS: DOXYCYCLINE 100 MG in DEXT 5% WATER 100 ML IV SCH ×2 (05:25→17:35)
[2021-04-06 05:58] LABS: CHLORIDE 112 mEq/L (98-107)
[2021-04-06] MEDS: DILTIAZEM HCL 30MG TABLET PO SCH ×3 (06:02→20:31)
[2021-04-06] MEDS: VENLAFAXINE HCL 37.5MG TABLET PO SCH ×2 (06:02→17:35)
[2021-04-06] MEDS: GABAPENTIN 100MG CAPSULE PO SCH ×3 (06:02→20:31)
[2021-04-06 06:10] LABS: BASOPHILS % 0.1 % (0.0-2.0); HEMOGLOBIN. 11.3 g/dL (12.0-16.0); LYMPHOCYTES % 11.4 % (20.0-50.0); MEAN CORPUSCULAR HEMOGLOBIN 26.3 pg (28.0-32.0); MEAN CORPUSCULAR VOLUME 81.2 fL (81.0-99.0); MEAN PLATELET VOLUME 8.7 fl (7.4-10.4); MONOCYTES % 5.1 % (2.0-8.0); NEUTROPHILS % 83.4 % (40.0-76.0); PLATELET 219 x1000/uL (130-400); RED BLOOD CELL COUNT 4.31 mill/uL (4.2-5.4); RED CELL DISTRIBUTION WIDTH 15.1 % (11.6-14.6)
[2021-04-06 08:00] VITALS: BP 118/56
[2021-04-06] MEDS: DOCUSATE SODIUM 100MG CAPSULE PO SCH ×2 (08:46→17:36)
[2021-04-06] MEDS: ASCORBIC ACID 500 MG TABLET PO SCH (08:46)
[2021-04-06] MEDS: DEXAMETHASONE 10 MG/ML VIAL IV SCH (08:46)
[2021-04-06] MEDS: ZINC SULFATE 220 MG ( 50 ) CAPSULE PO SCH (08:46)
[2021-04-06] MEDS: ENOXAPARIN 30MG/0.3ML SYR SUBCUT SCH (08:47)
[2021-04-06] MEDS: AMLODIPINE 10MG TABLET PO SCH (08:47)
[2021-04-06 12:00] VITALS: BP 120/55
[2021-04-06] MEDS ORDERED: NALOXONE HCL 0.4MG/ML VIAL IV PRN (14:30)
[2021-04-06 16:00] VITALS: BP 119/69
[2021-04-06] MEDS ORDERED: POTASSIUM CHLORIDE 20MEQ TABLET SR PO NR (16:15)
[2021-04-06] MEDS: FUROSEMIDE 20MG TABLET PO SCH (17:36)
[2021-04-06 20:00] VITALS: BP 132/63
[2021-04-06] MEDS: LORAZEPAM 2MG/ML CPJ IV PRN (20:28)
[2021-04-06] MEDS: TIZANIDINE HCL 2MG TABLET PO SCH (20:30)
[2021-04-06] MEDS: ATORVASTATIN CALCIUM 20MG TABLET PO SCH (20:30)
[2021-04-06] MEDS: MIRTAZAPINE 15MG TABLET PO SCH (20:30)
[2021-04-07] VITALS: BP 122/66
[2021-04-07 04:00] VITALS: BP 125/64
[2021-04-07] MEDS: GABAPENTIN 100MG CAPSULE PO SCH ×3 (05:15→21:32)
[2021-04-07] MEDS: OXYCODONE HCL 5MG TABLET PO PRN (05:15)
[2021-04-07] MEDS: CEFEPIME 2,000 MG in DEXT 5% WATER 100 ML IV SCH ×2 (05:19→16:28)
[2021-04-07] MEDS: DILTIAZEM HCL 30MG TABLET PO SCH ×2 (05:19→13:48)
[2021-04-07 08:00] VITALS: BP 102/62
[2021-04-07] MEDS: AMLODIPINE 10MG TABLET PO SCH (09:00)
[2021-04-07] MEDS: ENOXAPARIN 30MG/0.3ML SYR SUBCUT SCH (09:07)
[2021-04-07] MEDS: DOXYCYCLINE 100 MG in DEXT 5% WATER 100 ML IV SCH ×2 (09:07→18:08)
[2021-04-07] MEDS: ASCORBIC ACID 500 MG TABLET PO SCH (09:08)
[2021-04-07] MEDS: FUROSEMIDE 20MG TABLET PO SCH (09:08)
[2021-04-07] MEDS: DEXAMETHASONE 10 MG/ML VIAL IV SCH (09:08)
[2021-04-07] MEDS: DOCUSATE SODIUM 100MG CAPSULE PO SCH ×2 (09:08→17:00)
[2021-04-07] MEDS: ZINC SULFATE 220 MG ( 50 ) CAPSULE PO SCH (09:08)
[2021-04-07] MEDS: VENLAFAXINE HCL 37.5MG TABLET PO SCH ×2 (09:08→18:05)
[2021-04-07 12:00] VITALS: BP 95/62
[2021-04-07 12:44] LABS: BG BASE EXCESS -6.6 mmol/L (-2.0-2.0); BG CARBOXYHEMOGLOBIN 0.3 % (0.5-1.5); BG DEOXYHEMOGLOBIN 4.7 % (0.0-5.0); BG FRACTION INSPIRED OXYGEN 60; BG HCO3 ACT 18.8 mmol/L (22.0-26.0); BG METHEMOGLOBIN 0.3 % (0.0-1.5); BG OXYGEN SATURATION 95.3 % (92.0-98.5); BG OXYHEMOGLOBIN 94.7 % (94.0-97.0); BG PCO2 37.2 mmHg (35.0-45.0); BG PH 7.322 (7.350-7.450); BG PO2 85.3 mmHg (75.0-100.0); BG SAMPLE SITE LEFT RADIAL; BG TOTAL HEMOGLOBIN 11.8 g/dL (12.0-18.0); BG VENT MODE MASK - SIMPLE
[2021-04-07] MEDS: DILTIAZEM HCL 60MG TABLET PO SCH ×2 (14:30→18:05)
[2021-04-07 16:00] VITALS: BP 128/74
[2021-04-07 20:00] VITALS: BP 129/60
[2021-04-07] MEDS: MIRTAZAPINE 15MG TABLET PO SCH (21:00)
[2021-04-07] MEDS: LORAZEPAM 2MG/ML CPJ IV PRN (21:31)
[2021-04-07] MEDS: TIZANIDINE HCL 2MG TABLET PO SCH (21:32)
[2021-04-07] MEDS: ATORVASTATIN CALCIUM 20MG TABLET PO SCH (21:34)
[2021-04-08] VITALS: BP 114/57
[2021-04-08] MEDS: CEFEPIME 2,000 MG in DEXT 5% WATER 100 ML IV SCH ×2 (03:27→15:45)
[2021-04-08 04:00] VITALS: BP 134/65
[2021-04-08] MEDS: DOXYCYCLINE 100 MG in DEXT 5% WATER 100 ML IV SCH ×2 (05:28→17:17)
[2021-04-08] MEDS: DILTIAZEM HCL 60MG TABLET PO SCH ×4 (06:38→17:18)
[2021-04-08] MEDS: GABAPENTIN 100MG CAPSULE PO SCH ×3 (06:38→20:19)
[2021-04-08] MEDS: OXYCODONE HCL 5MG TABLET PO PRN (06:39)
[2021-04-08 08:00] VITALS: BP 103/48
[2021-04-08] MEDS: ZINC SULFATE 220 MG ( 50 ) CAPSULE PO SCH (08:11)
[2021-04-08] MEDS: DEXAMETHASONE 10 MG/ML VIAL IV SCH (08:11)
[2021-04-08] MEDS: ASCORBIC ACID 500 MG TABLET PO SCH (08:11)
[2021-04-08] MEDS: DOCUSATE SODIUM 100MG CAPSULE PO SCH ×2 (08:11→17:17)
[2021-04-08] MEDS: ENOXAPARIN 30MG/0.3ML SYR SUBCUT SCH (08:12)
[2021-04-08] MEDS: FUROSEMIDE 20MG TABLET PO SCH (08:12)
[2021-04-08] MEDS: VENLAFAXINE HCL 37.5MG TABLET PO SCH ×2 (08:14→17:17)
[2021-04-08 12:00] VITALS: BP 117/58
[2021-04-08 16:00] VITALS: BP 108/69
[2021-04-08 20:00] VITALS: BP 115/61
[2021-04-08] MEDS: ATORVASTATIN CALCIUM 20MG TABLET PO SCH (20:19)
[2021-04-08] MEDS: TIZANIDINE HCL 2MG TABLET PO SCH (20:19)
[2021-04-08] MEDS: MIRTAZAPINE 15MG TABLET PO SCH (21:25)
[2021-04-09] MEDS: DILTIAZEM HCL 60MG TABLET PO SCH ×5 (00:03→23:57)
[2021-04-09 00:05] VITALS: BP 110/60
[2021-04-09] MEDS: CEFEPIME 2,000 MG in DEXT 5% WATER 100 ML IV SCH (03:29)
[2021-04-09 04:00] VITALS: BP 115/67
[2021-04-09] MEDS: DOXYCYCLINE 100 MG in DEXT 5% WATER 100 ML IV SCH ×2 (04:07→16:54)
[2021-04-09] MEDS: GABAPENTIN 100MG CAPSULE PO SCH ×3 (05:25→21:02)
[2021-04-09] MEDS: LORAZEPAM 2MG/ML CPJ IV PRN ×2 (06:18→16:54)
[2021-04-09 08:04] VITALS: BP 127/96
[2021-04-09] MEDS: DEXAMETHASONE 10 MG/ML VIAL IV SCH (08:14)
[2021-04-09] MEDS: ASCORBIC ACID 500 MG TABLET PO SCH (08:14)
[2021-04-09] MEDS: ZINC SULFATE 220 MG ( 50 ) CAPSULE PO SCH (08:14)
[2021-04-09] MEDS: FUROSEMIDE 20MG TABLET PO SCH (08:14)
[2021-04-09] MEDS: DOCUSATE SODIUM 100MG CAPSULE PO SCH ×2 (08:14→16:54)
[2021-04-09] MEDS: VENLAFAXINE HCL 37.5MG TABLET PO SCH ×2 (08:14→17:14)
[2021-04-09] MEDS: ENOXAPARIN 30MG/0.3ML SYR SUBCUT SCH (08:16)
[2021-04-09] MEDS: OXYCODONE HCL 5MG TABLET PO PRN (08:16)
[2021-04-09 12:00] VITALS: BP 129/54
[2021-04-09] MEDS: RISPERIDONE 1MG TABLET PO SCH (12:46)
[2021-04-09] MEDS ORDERED: BENZONATATE 100MG CAPSULE PO PRN (14:00)
[2021-04-09 16:00] VITALS: BP 133/64
[2021-04-09 20:00] VITALS: BP 122/50
[2021-04-09] MEDS: ATORVASTATIN CALCIUM 20MG TABLET PO SCH (21:02)
[2021-04-09] MEDS: GUAIFENESIN 600MG ER TABLET PO SCH (21:02)
[2021-04-09] MEDS: TIZANIDINE HCL 2MG TABLET PO SCH (21:03)
[2021-04-09] MEDS: MIRTAZAPINE 15MG TABLET PO SCH (22:05)
[2021-04-09] MEDS: ACETAMINOPHEN 325MG TABLET PO PRN (23:57)
[2021-04-10] VITALS: BP 111/48
[2021-04-10 04:00] VITALS: BP 111/50
[2021-04-10] MEDS: DILTIAZEM HCL 60MG TABLET PO SCH ×3 (06:30→17:50)
[2021-04-10] MEDS: GABAPENTIN 100MG CAPSULE PO SCH ×3 (06:30→21:06)
[2021-04-10] MEDS ORDERED: KETOROLAC 30MG/ML VIAL IV PRN (07:45)
[2021-04-10 08:00] VITALS: BP 130/90
[2021-04-10] MEDS ORDERED: KETOROLAC 15MG/ML VIAL IV PRN (08:00)
[2021-04-10] MEDS: DEXAMETHASONE 10 MG/ML VIAL IV SCH (09:00)
[2021-04-10] MEDS: VENLAFAXINE HCL 37.5MG TABLET PO SCH ×2 (09:08→17:50)
[2021-04-10] MEDS: DOCUSATE SODIUM 100MG CAPSULE PO SCH ×2 (09:08→17:50)
[2021-04-10] MEDS: ZINC SULFATE 220 MG ( 50 ) CAPSULE PO SCH (09:08)
[2021-04-10] MEDS: RISPERIDONE 1MG TABLET PO SCH ×2 (09:08→20:59)
[2021-04-10] MEDS: GUAIFENESIN 600MG ER TABLET PO SCH ×2 (09:08→20:59)
[2021-04-10] MEDS: ENOXAPARIN 30MG/0.3ML SYR SUBCUT SCH (09:09)
[2021-04-10] MEDS: ASCORBIC ACID 500 MG TABLET PO SCH (09:16)
[2021-04-10 12:00] VITALS: BP 130/90
[2021-04-10 16:00] VITALS: BP 121/53
[2021-04-10 20:00] VITALS: BP 132/65
[2021-04-10] MEDS: ACETAMINOPHEN 325MG TABLET PO PRN (20:56)
[2021-04-10] MEDS: TIZANIDINE HCL 2MG TABLET PO SCH (20:57)
[2021-04-10] MEDS: MIRTAZAPINE 15MG TABLET PO SCH (20:59)
[2021-04-10] MEDS: ATORVASTATIN CALCIUM 20MG TABLET PO SCH (21:09)
[2021-04-11] VITALS (23 sets, daily range): BP systolic 88–152; BP diastolic 42–70
[2021-04-11] MEDS: DILTIAZEM HCL 60MG TABLET PO SCH ×5 (06:00→23:02)
[2021-04-11] MEDS: GABAPENTIN 100MG CAPSULE PO SCH ×3 (06:21→22:00)
[2021-04-11] MEDS: DOCUSATE SODIUM 100MG CAPSULE PO SCH ×2 (09:07→17:00)
[2021-04-11] MEDS: GUAIFENESIN 600MG ER TABLET PO SCH ×2 (09:08→22:01)
[2021-04-11] MEDS: VENLAFAXINE HCL 37.5MG TABLET PO SCH ×2 (09:08→17:00)
[2021-04-11] MEDS: ASCORBIC ACID 500 MG TABLET PO SCH (09:08)
[2021-04-11] MEDS: RISPERIDONE 1MG TABLET PO SCH ×2 (09:08→22:01)
[2021-04-11] MEDS: ZINC SULFATE 220 MG ( 50 ) CAPSULE PO SCH (09:08)
[2021-04-11] MEDS: ENOXAPARIN 30MG/0.3ML SYR SUBCUT SCH (09:09)
[2021-04-11] MEDS: DEXAMETHASONE 10 MG/ML VIAL IV SCH (09:09)
[2021-04-11] MEDS ORDERED: LIDOCAINE HCL 1% 20ML VIAL (Pyxis) INJ ONE (14:43)
[2021-04-11 18:20] LABS: BG BASE EXCESS -1.3 mmol/L (-2.0-2.0); BG CARBOXYHEMOGLOBIN 0.3 % (0.5-1.5); BG DEOXYHEMOGLOBIN 1.1 % (0.0-5.0); BG FRACTION INSPIRED OXYGEN 100; BG HCO3 ACT 24.8 mmol/L (22.0-26.0); BG METHEMOGLOBIN 0.3 % (0.0-1.5); BG OXYGEN SATURATION 98.9 % (92.0-98.5); BG OXYHEMOGLOBIN 98.3 % (94.0-97.0); BG PCO2 47.2 mmHg (35.0-45.0); BG PH 7.339 (7.350-7.450); BG PO2 197.9 mmHg (75.0-100.0); BG SAMPLE SITE LEFT RADIAL; BG TOTAL HEMOGLOBIN 12.6 g/dL (12.0-18.0); BG TOTAL RESPIRATORY RATE 21 b/min; BG VENT MODE MASK - BIPAP
[2021-04-11 19:21] LABS: CHLORIDE 126 mEq/L (98-107)
[2021-04-11 19:23] LABS: HEMOGLOBIN. 11.3 g/dL (12.0-16.0); MEAN CORPUSCULAR HEMOGLOBIN 25.5 pg (28.0-32.0); MEAN CORPUSCULAR VOLUME 81.2 fL (81.0-99.0); PLATELET 237 x1000/uL (130-400); RED BLOOD CELL COUNT 4.43 mill/uL (4.2-5.4); RED CELL DISTRIBUTION WIDTH 15.1 % (11.6-14.6)
[2021-04-11 19:44] LABS: PLATELET ESTIMATE NORMAL
[2021-04-11] MEDS: DEXTROSE 5% WATER 1,000 ML IV SCH (20:20)
[2021-04-11] MEDS: TIZANIDINE HCL 2MG TABLET PO SCH (22:00)
[2021-04-11] MEDS: ATORVASTATIN CALCIUM 20MG TABLET PO SCH (22:00)
[2021-04-11] MEDS: MIRTAZAPINE 15MG TABLET PO SCH (22:00)
[2021-04-11] MEDS: CEFEPIME 2,000 MG in DEXT 5% WATER 100 ML IV SCH (22:45)
[2021-04-12] VITALS (32 sets, daily range): BP systolic 81–133; BP diastolic 28–65
[2021-04-12 00:22] LABS: CLARITY URINE CLOUDY (CLEAR); COLOR URINE YELLOW (YELLOW); KETONES URINE NEGATIVE (NEGATIVE); LEUKOCYTE ESTERASE URINE 1+ (NEGATIVE); NITRITE URINE NEGATIVE (NEGATIVE); OCCULT BLOOD URINE 2+ (NEGATIVE); PH URINE 5.5 (4.5-8.0); PROTEIN URINE 2+ (NEGATIVE); UROBILINOGEN URINE 0.2 E.U./dL (0.2-1.0)
[2021-04-12 05:32] LABS: HEMATOCRIT. 35.8 % (36.0-48.0); HEMOGLOBIN. 11.4 g/dL (12.0-16.0); MEAN CORPUSCULAR VOLUME 81.9 fL (81.0-99.0); MEAN PLATELET VOLUME 9.1 fl (7.4-10.4); PLATELET 231 x1000/uL (130-400); RED BLOOD CELL COUNT 4.37 mill/uL (4.2-5.4); RED CELL DISTRIBUTION WIDTH 15.1 % (11.6-14.6)
[2021-04-12 05:37] LABS: CHLORIDE 126 mEq/L (98-107)
[2021-04-12] MEDS: DILTIAZEM HCL 60MG TABLET PO SCH ×4 (06:00→23:15)
[2021-04-12] MEDS: VENLAFAXINE HCL 37.5MG TABLET PO SCH ×2 (06:09→17:12)
[2021-04-12] MEDS: GABAPENTIN 100MG CAPSULE PO SCH ×3 (06:15→21:24)
[2021-04-12] MEDS ORDERED: KCL 20MEQ/100ML PREMIX 100 ML IV ONE (09:15)
[2021-04-12] MEDS ORDERED: POTASSIUM CHLORIDE INJ 40 MEQ in DEXT 5% WATER 250 ML IV ONE (09:15)
[2021-04-12] MEDS ORDERED: POTASSIUM CHLORIDE INJ 40 MEQ in DEXT 5% WATER 500 ML IV ONE (09:15)
[2021-04-12] MEDS: DEXTROSE 5% WATER 1,000 ML IV SCH ×2 (09:28→21:25)
[2021-04-12] MEDS: DEXAMETHASONE 10 MG/ML VIAL IV SCH (09:43)
[2021-04-12] MEDS: GUAIFENESIN 600MG ER TABLET PO SCH ×2 (09:43→21:25)
[2021-04-12] MEDS: ENOXAPARIN 30MG/0.3ML SYR SUBCUT SCH (09:43)
[2021-04-12] MEDS: DOCUSATE SODIUM 100MG CAPSULE PO SCH ×2 (09:44→17:00)
[2021-04-12] MEDS: ZINC SULFATE 220 MG ( 50 ) CAPSULE PO SCH (09:44)
[2021-04-12] MEDS: RISPERIDONE 1MG TABLET PO SCH ×2 (09:44→21:25)
[2021-04-12] MEDS: CEFEPIME 2,000 MG in DEXT 5% WATER 100 ML IV SCH ×2 (09:47→21:24)
[2021-04-12 10:23] LABS: BG BASE EXCESS -0.4 mmol/L (-2.0-2.0); BG CARBOXYHEMOGLOBIN 0.3 % (0.5-1.5); BG DEOXYHEMOGLOBIN 4.4 % (0.0-5.0); BG HCO3 ACT 23.4 mmol/L (22.0-26.0); BG METHEMOGLOBIN 0.3 % (0.0-1.5); BG OXYGEN SATURATION 95.6 % (92.0-98.5); BG PCO2 35.2 mmHg (35.0-45.0); BG PO2 82.4 mmHg (75.0-100.0); BG SAMPLE SITE RIGHT BRACHIAL; BG TOTAL HEMOGLOBIN 12.1 g/dL (12.0-18.0); BG VENT MODE MASK - BIPAP
[2021-04-12 10:58] LABS: PLATELET ESTIMATE NORMAL
[2021-04-12] MEDS: KCL 20MEQ/100ML PREMIX 100 ML IV SCH ×2 (11:48→13:13)
[2021-04-12] MEDS: ASCORBIC ACID 500 MG TABLET PO SCH (11:48)
[2021-04-12] MEDS: ATORVASTATIN CALCIUM 20MG TABLET PO SCH (21:24)
[2021-04-12] MEDS: TIZANIDINE HCL 2MG TABLET PO SCH (21:25)
[2021-04-12] MEDS: MIRTAZAPINE 15MG TABLET PO SCH (21:25)
[2021-04-12] MEDS: NOREPINEPHRINE 32 MG in DEXT 5% WATER 218 ML IV PRN (23:15)
[2021-04-13] VITALS (63 sets, daily range): BP systolic 59–135; BP diastolic 29–95
[2021-04-13 06:02] LABS: HEMATOCRIT. 35.6 % (36.0-48.0); HEMOGLOBIN. 11.2 g/dL (12.0-16.0); MEAN CORPUSCULAR HEMOGLOBIN 25.9 pg (28.0-32.0); MEAN CORPUSCULAR VOLUME 82.2 fL (81.0-99.0); MEAN PLATELET VOLUME 9.3 fl (7.4-10.4); PLATELET 200 x1000/uL (130-400); RED BLOOD CELL COUNT 4.33 mill/uL (4.2-5.4); RED CELL DISTRIBUTION WIDTH 15.1 % (11.6-14.6)
[2021-04-13 06:11] LABS: CHLORIDE 119 mEq/L (98-107)
[2021-04-13] MEDS: GABAPENTIN 100MG CAPSULE PO SCH ×3 (06:25→22:56)
[2021-04-13] MEDS: DILTIAZEM HCL 60MG TABLET PO SCH (06:25)
[2021-04-13] MEDS: VENLAFAXINE HCL 37.5MG TABLET PO SCH ×2 (06:25→17:51)
[2021-04-13] MEDS: MULTIVITAMINS,THER W-MINERALS TABLET PO SCH (08:31)
[2021-04-13] MEDS: RISPERIDONE 1MG TABLET PO SCH ×2 (08:31→22:57)
[2021-04-13] MEDS: DOCUSATE SODIUM 100MG CAPSULE PO SCH ×2 (08:32→17:50)
[2021-04-13] MEDS: GUAIFENESIN 600MG ER TABLET PO SCH ×2 (08:32→22:57)
[2021-04-13] MEDS: DEXAMETHASONE 10 MG/ML VIAL IV SCH (08:32)
[2021-04-13] MEDS: ZINC SULFATE 220 MG ( 50 ) CAPSULE PO SCH (08:32)
[2021-04-13] MEDS: ASCORBIC ACID 500 MG TABLET PO SCH (08:32)
[2021-04-13] MEDS: ENOXAPARIN 30MG/0.3ML SYR SUBCUT SCH (08:33)
[2021-04-13] MEDS: CEFEPIME 2,000 MG in DEXT 5% WATER 100 ML IV SCH ×2 (08:48→22:56)
[2021-04-13] MEDS ORDERED: DIGOXIN 500MCG/2ML AMP IV PRN (10:00)
[2021-04-13] MEDS: DILTIAZEM HCL 30MG TABLET PO SCH ×3 (12:00→23:00)
[2021-04-13] MEDS: DEXTROSE 5% WATER 1,000 ML IV SCH (12:01)
[2021-04-13 13:34] LABS: BG BASE EXCESS -4.4 mmol/L (-2.0-2.0); BG CARBOXYHEMOGLOBIN 0.3 % (0.5-1.5); BG DEOXYHEMOGLOBIN 2.6 % (0.0-5.0); BG FRACTION INSPIRED OXYGEN 70; BG HCO3 ACT 20.7 mmol/L (22.0-26.0); BG METHEMOGLOBIN 0.3 % (0.0-1.5); BG OXYGEN SATURATION 97.4 % (92.0-98.5); BG OXYHEMOGLOBIN 96.8 % (94.0-97.0); BG PCO2 38.3 mmHg (35.0-45.0); BG PH 7.351 (7.350-7.450); BG PO2 99.7 mmHg (75.0-100.0); BG SAMPLE SITE RIGHT RADIAL; BG TOTAL HEMOGLOBIN 11.7 g/dL (12.0-18.0); BG VENT MODE MASK - BIPAP
[2021-04-13 17:42] LABS: PLATELET ESTIMATE NORMAL
[2021-04-13] MEDS ORDERED: SODIUM CHLORIDE 0.45% 500 ML IV NR (20:45)
[2021-04-13] MEDS ORDERED: ADENOSINE 3 MG/ML 2ML VIAL IV NR (20:45)
[2021-04-13] MEDS ORDERED: ADENOSINE 3 MG/ML 2ML VIAL IV PRN (21:15)
[2021-04-13] MEDS ORDERED: AMIODARONE HCL 150 MG in DEXT 5% WATER 100 ML IV PRN (21:30)
[2021-04-13] MEDS: AMIODARONE HCL 900 MG in DEXT 5% WATER 482 ML IV PRN (22:24)
[2021-04-13] MEDS: MIRTAZAPINE 15MG TABLET PO SCH (22:57)
[2021-04-13] MEDS: TIZANIDINE HCL 2MG TABLET PO SCH (22:57)
[2021-04-13] MEDS: ATORVASTATIN CALCIUM 20MG TABLET PO SCH (22:57)
[2021-04-14] VITALS (51 sets, daily range): BP systolic 99–140; BP diastolic 48–69
[2021-04-14] MEDS: DILTIAZEM HCL 30MG TABLET PO SCH ×3 (06:00→17:44)
[2021-04-14 06:01] LABS: HEMATOCRIT. 34.8 % (36.0-48.0); HEMOGLOBIN. 11.5 g/dL (12.0-16.0); MEAN CORPUSCULAR HEMOGLOBIN 26.7 pg (28.0-32.0); MEAN CORPUSCULAR VOLUME 80.9 fL (81.0-99.0); PLATELET 156 x1000/uL (130-400); RED CELL DISTRIBUTION WIDTH 14.3 % (11.6-14.6)
[2021-04-14 06:12] LABS: CHLORIDE 112 mEq/L (98-107)
[2021-04-14] MEDS: DEXTROSE 5% WATER 1,000 ML IV SCH (06:18)
[2021-04-14] MEDS: VENLAFAXINE HCL 37.5MG TABLET PO SCH ×2 (06:18→16:53)
[2021-04-14] MEDS: GABAPENTIN 100MG CAPSULE PO SCH ×3 (06:18→21:56)
[2021-04-14 08:15] LABS: ATYPICAL LYMPHOCYTES 1; PLATELET ESTIMATE NORMAL
[2021-04-14] MEDS: RISPERIDONE 1MG TABLET PO SCH ×2 (08:44→21:56)
[2021-04-14] MEDS: DEXAMETHASONE 10 MG/ML VIAL IV SCH (08:44)
[2021-04-14] MEDS: MULTIVITAMINS,THER W-MINERALS TABLET PO SCH (08:44)
[2021-04-14] MEDS: ZINC SULFATE 220 MG ( 50 ) CAPSULE PO SCH (08:44)
[2021-04-14] MEDS: ASCORBIC ACID 500 MG TABLET PO SCH (08:44)
[2021-04-14] MEDS: DOCUSATE SODIUM 100MG CAPSULE PO SCH ×2 (08:44→16:53)
[2021-04-14] MEDS: CEFEPIME 2,000 MG in DEXT 5% WATER 100 ML IV SCH ×2 (08:45→21:55)
[2021-04-14] MEDS: ENOXAPARIN 30MG/0.3ML SYR SUBCUT SCH (08:45)
[2021-04-14] MEDS: GUAIFENESIN 600MG ER TABLET PO SCH ×2 (08:47→21:00)
[2021-04-14] MEDS: TIZANIDINE HCL 2MG TABLET PO SCH (21:55)
[2021-04-14] MEDS: MIRTAZAPINE 15MG TABLET PO SCH (21:55)
[2021-04-14] MEDS: ATORVASTATIN CALCIUM 20MG TABLET PO SCH (21:56)
[2021-04-14] MEDS: AMIODARONE HCL 900 MG in DEXT 5% WATER 482 ML IV PRN (21:57)
[2021-04-15] VITALS (48 sets, daily range): BP systolic 99–123; BP diastolic 31–60
[2021-04-15] MEDS: DILTIAZEM HCL 30MG TABLET PO SCH ×4 (01:13→17:02)
[2021-04-15 06:29] LABS: HEMOGLOBIN. 9.8 g/dL (12.0-16.0); MEAN CORPUSCULAR HEMOGLOBIN 25.2 pg (28.0-32.0); MEAN CORPUSCULAR VOLUME 80.2 fL (81.0-99.0); MEAN PLATELET VOLUME 9.8 fl (7.4-10.4); PLATELET 190 x1000/uL (130-400); RED BLOOD CELL COUNT 3.87 mill/uL (4.2-5.4); RED CELL DISTRIBUTION WIDTH 14.4 % (11.6-14.6)
[2021-04-15 06:30] LABS: CHLORIDE 105 mEq/L (98-107)
[2021-04-15] MEDS: GABAPENTIN 100MG CAPSULE PO SCH ×3 (06:43→22:00)
[2021-04-15] MEDS: VENLAFAXINE HCL 37.5MG TABLET PO SCH ×2 (06:43→16:17)
[2021-04-15 08:15] LABS: PLATELET ESTIMATE NORMAL
[2021-04-15] MEDS: GUAIFENESIN 600MG ER TABLET PO SCH ×2 (08:30→21:00)
[2021-04-15] MEDS: MULTIVITAMINS,THER W-MINERALS TABLET PO SCH (08:30)
[2021-04-15] MEDS: ASCORBIC ACID 500 MG TABLET PO SCH (08:30)
[2021-04-15] MEDS: ZINC SULFATE 220 MG ( 50 ) CAPSULE PO SCH (08:30)
[2021-04-15] MEDS: RISPERIDONE 1MG TABLET PO SCH ×2 (08:30→08:52)
[2021-04-15] MEDS: DOCUSATE SODIUM 100MG CAPSULE PO SCH (08:31)
[2021-04-15] MEDS: CEFEPIME 2,000 MG in DEXT 5% WATER 100 ML IV SCH ×2 (08:31→22:00)
[2021-04-15] MEDS: DEXAMETHASONE 10 MG/ML VIAL IV SCH (08:31)
[2021-04-15] MEDS: ENOXAPARIN 30MG/0.3ML SYR SUBCUT SCH (08:52)
[2021-04-15] MEDS: DOCUSATE SODIUM SUGAR FREE 100MG/10ML UDC NG SCH (16:16)
[2021-04-15] MEDS ORDERED: GABAPENTIN 100MG CAPSULE PO PRN (17:48)
[2021-04-15] MEDS: TIZANIDINE HCL 2MG TABLET PO SCH (21:00)
[2021-04-15] MEDS ORDERED: RISPERIDONE 1MG TABLET PO PRN ×2 (21:00)
[2021-04-15] MEDS: AMIODARONE HCL 200 MG TABLET NG SCH (22:46)
[2021-04-15] MEDS: ATORVASTATIN CALCIUM 20MG TABLET PO SCH (22:48)
[2021-04-15 23:27] LABS: BG BASE EXCESS -4.4 mmol/L (-2.0-2.0); BG CARBOXYHEMOGLOBIN 0.3 % (0.5-1.5); BG DEOXYHEMOGLOBIN 5.5 % (0.0-5.0); BG FRACTION INSPIRED OXYGEN 100; BG METHEMOGLOBIN 0.3 % (0.0-1.5); BG OXYGEN SATURATION 94.5 % (92.0-98.5); BG OXYHEMOGLOBIN 93.9 % (94.0-97.0); BG PCO2 70.3 mmHg (35.0-45.0); BG PH 7.168 (7.350-7.450); BG PO2 86.4 mmHg (75.0-100.0); BG SAMPLE SITE LEFT RADIAL; BG TOTAL HEMOGLOBIN 10.7 g/dL (12.0-18.0)
[2021-04-16] VITALS (64 sets, daily range): BP systolic 41–116; BP diastolic 28–63
[2021-04-16] MEDS: DILTIAZEM HCL 30MG TABLET PO SCH ×5 (01:48→23:44)
[2021-04-16 02:04] LABS: BG BASE EXCESS -4.7 mmol/L (-2.0-2.0); BG CARBOXYHEMOGLOBIN 0.4 % (0.5-1.5); BG DEOXYHEMOGLOBIN 7.4 % (0.0-5.0); BG FRACTION INSPIRED OXYGEN 100; BG HCO3 ACT 22.7 mmol/L (22.0-26.0); BG METHEMOGLOBIN 0.2 % (0.0-1.5); BG OXYGEN SATURATION 92.6 % (92.0-98.5); BG PCO2 51.5 mmHg (35.0-45.0); BG PH 7.263 (7.350-7.450); BG PO2 68.6 mmHg (75.0-100.0); BG SAMPLE SITE LEFT RADIAL; BG TOTAL HEMOGLOBIN 13.7 g/dL (12.0-18.0); BG VENT MODE MASK - BIPAP
[2021-04-16 04:54] LABS: BG BASE EXCESS -4.7 mmol/L (-2.0-2.0); BG CARBOXYHEMOGLOBIN 0.3 % (0.5-1.5); BG FRACTION INSPIRED OXYGEN 100; BG HCO3 ACT 22.1 mmol/L (22.0-26.0); BG METHEMOGLOBIN 0.2 % (0.0-1.5); BG OXYGEN SATURATION 86.9 % (92.0-98.5); BG OXYHEMOGLOBIN 86.5 % (94.0-97.0); BG PCO2 48.1 mmHg (35.0-45.0); BG PH 7.281 (7.350-7.450); BG PO2 54.3 mmHg (75.0-100.0); BG SAMPLE SITE LEFT RADIAL; BG TOTAL HEMOGLOBIN 11.8 g/dL (12.0-18.0); BG VENT MODE MASK - BIPAP
[2021-04-16] MEDS: GABAPENTIN 100MG CAPSULE PO SCH ×3 (06:00→21:07)
[2021-04-16 06:03] LABS: HEMATOCRIT. 33.8 % (36.0-48.0); HEMOGLOBIN. 10.5 g/dL (12.0-16.0); MEAN CORPUSCULAR HEMOGLOBIN 25.3 pg (28.0-32.0); MEAN CORPUSCULAR VOLUME 81.1 fL (81.0-99.0); MEAN PLATELET VOLUME 10.1 fl (7.4-10.4); PLATELET 250 x1000/uL (130-400); RED BLOOD CELL COUNT 4.17 mill/uL (4.2-5.4); RED CELL DISTRIBUTION WIDTH 14.8 % (11.6-14.6)
[2021-04-16] MEDS: VENLAFAXINE HCL 37.5MG TABLET PO SCH (06:07)
[2021-04-16 06:20] LABS: CHLORIDE 108 mEq/L (98-107)
[2021-04-16 06:48] LABS: DIGOXIN 0.5 ng/mL (0.9-2.0)
[2021-04-16] MEDS: PHENYLEPHRINE 50 MG in DEXT 5% WATER 245 ML IV PRN ×4 (07:37→23:43)
[2021-04-16] MEDS ORDERED: SUCCINYLCHOLINE CHLORIDE 200MG/10ML IV ONE (07:49)
[2021-04-16] MEDS ORDERED: ETOMIDATE 2MG/ML 10ML VIAL IV ONE (07:49)
[2021-04-16] MEDS ORDERED: PROPOFOL 10MG/ML 100ML 100 ML IV PRN (08:30)
[2021-04-16] MEDS: DOCUSATE SODIUM SUGAR FREE 100MG/10ML UDC NG SCH ×2 (09:00→16:31)
[2021-04-16] MEDS: GUAIFENESIN 600MG ER TABLET PO SCH ×2 (09:00→21:00)
[2021-04-16] MEDS: AMIODARONE HCL 200 MG TABLET NG SCH ×2 (09:00→21:00)
[2021-04-16] MEDS: DEXAMETHASONE 10 MG/ML VIAL IV SCH (09:18)
[2021-04-16] MEDS: ASCORBIC ACID 500 MG TABLET PO SCH (09:18)
[2021-04-16] MEDS: MULTIVITAMINS,THER W-MINERALS TABLET PO SCH (09:18)
[2021-04-16] MEDS: ENOXAPARIN 30MG/0.3ML SYR SUBCUT SCH (09:18)
[2021-04-16] MEDS: ZINC SULFATE 220 MG ( 50 ) CAPSULE PO SCH (09:18)
[2021-04-16] MEDS: CEFEPIME 2,000 MG in DEXT 5% WATER 100 ML IV SCH (09:19)
[2021-04-16] MEDS ORDERED: SODIUM CHLORIDE 0.9% 500 ML IV ONE (09:30)
[2021-04-16] MEDS ORDERED: FENTANYL CITRATE/PF 2,500 MCG in SODIUM CHLORIDE 0.9% 200 ML IV PRN (09:45)
[2021-04-16] MEDS: NOREPINEPHRINE 32 MG in DEXT 5% WATER 218 ML IV PRN (10:01)
[2021-04-16 11:09] LABS: BG BASE EXCESS -9.2 mmol/L (-2.0-2.0); BG DEOXYHEMOGLOBIN 17.5 % (0.0-5.0); BG FRACTION INSPIRED OXYGEN 100; BG HCO3 ACT 19.7 mmol/L (22.0-26.0); BG METHEMOGLOBIN 0.3 % (0.0-1.5); BG OXYGEN SATURATION 82.4 % (92.0-98.5); BG OXYHEMOGLOBIN 82.2 % (94.0-97.0); BG PCO2 56.2 mmHg (35.0-45.0); BG PH 7.163 (7.350-7.450); BG PO2 53.9 mmHg (75.0-100.0); BG TOTAL HEMOGLOBIN 12.2 g/dL (12.0-18.0); BG VENT MODE VENT - AC
[2021-04-16] MEDS ORDERED: SODIUM BICARBONATE 8.4% 1 MEQ/ML 50ML SYR IV NR ×3 (11:15→16:30)
[2021-04-16] MEDS: VENLAFAXINE HCL 37.5MG TABLET NG SCH ×2 (11:22→16:31)
[2021-04-16 13:34] LABS: BG BASE EXCESS -10.2 mmol/L (-2.0-2.0); BG CARBOXYHEMOGLOBIN 0.3 % (0.5-1.5); BG FRACTION INSPIRED OXYGEN 100; BG HCO3 ACT 18.1 mmol/L (22.0-26.0); BG METHEMOGLOBIN 0.2 % (0.0-1.5); BG OXYGEN SATURATION 70.9 % (92.0-98.5); BG OXYHEMOGLOBIN 70.5 % (94.0-97.0); BG PCO2 49.6 mmHg (35.0-45.0); BG PH 7.179 (7.350-7.450); BG PO2 41.4 mmHg (75.0-100.0); BG SAMPLE SITE RIGHT RADIAL; BG TOTAL HEMOGLOBIN 11.8 g/dL (12.0-18.0); BG VENT MODE VENT - AC
[2021-04-16] MEDS ORDERED: SODIUM BICARBONATE 100 MEQ in DEXT 5%/0.45% NACL 1000ML 1,000 ML IV SCH (15:00)
[2021-04-16] MEDS ORDERED: VASOPRESSIN 20 UNIT in SODIUM CHLORIDE 0.9% 99 ML IV PRN (15:15)
[2021-04-16 16:15] LABS: BG BASE EXCESS -15.3 mmol/L (-2.0-2.0); BG CARBOXYHEMOGLOBIN 0.3 % (0.5-1.5); BG DEOXYHEMOGLOBIN 47.4 % (0.0-5.0); BG FRACTION INSPIRED OXYGEN 100; BG HCO3 ACT 15.4 mmol/L (22.0-26.0); BG METHEMOGLOBIN 0.1 % (0.0-1.5); BG OXYGEN SATURATION 52.4 % (92.0-98.5); BG OXYHEMOGLOBIN 52.2 % (94.0-97.0); BG PCO2 59.7 mmHg (35.0-45.0); BG SAMPLE SITE RIGHT RADIAL; BG TOTAL HEMOGLOBIN 11.2 g/dL (12.0-18.0); BG VENT MODE VENT - AC
[2021-04-16] MEDS ORDERED: VENLAFAXINE HCL 37.5MG TABLET NG SCH (17:00)
[2021-04-16 18:21] LABS: PLATELET ESTIMATE NORMAL
[2021-04-16] MEDS: TIZANIDINE HCL 2MG TABLET PO SCH (21:00)
[2021-04-16] MEDS: ATORVASTATIN CALCIUM 20MG TABLET PO SCH (23:43)
[2021-04-17] VITALS (8 sets, daily range): BP systolic 53–144; BP diastolic 32–49
== END 2021-04-17 05:44 | DRG 871 ==
LOC: ER 21:12 → MICUSO 23:58 → EDBEDREQTM 04-04 00:02 → EDBEDREQ 04-04 00:02 → MICUSO 04-04 07:32 → 7WST 04-06 14:14 → MICUSO 04-11 12:30
PROVIDERS: ADMIT Internal Medicine; ATTEND Internal Medicine
PROC: 02HV33Z Insertion of Infusion Device into Superior Vena Cava, Percutaneous Approach (ICD-10-PCS; principal; 2021-04-11)
PROC: 5A09557 Assistance with Respiratory Ventilation, Greater than 96 Consecutive Hours, Continuous Positive Airway Pressure (ICD-10-PCS; 2021-04-11)
PROC: 0BH17EZ Insertion of Endotracheal Airway into Trachea, Via Natural or Artificial Opening (ICD-10-PCS; 2021-04-16)
PROC: 5A1935Z Respiratory Ventilation, Less than 24 Consecutive Hours (ICD-10-PCS; 2021-04-16)
DX: A41.89 Other specified sepsis (principal); E43 Unspecified severe protein-calorie malnutrition; J12.82 Pneumonia due to coronavirus disease 2019; U07.1 COVID-19; J96.21 Acute and chronic respiratory failure with hypoxia; E87.1 Hypo-osmolality and hyponatremia; G82.20 Paraplegia, unspecified; G93.40 Encephalopathy, unspecified; D64.9 Anemia, unspecified; F03.90 Unspecified dementia, unspecified severity, without behavioral disturbance, psychotic disturbance, mood disturbance, and anxiety; E11.9 Type 2 diabetes mellitus without complications; I10 Essential (primary) hypertension; M19.90 Unspecified osteoarthritis, unspecified site; I48.91 Unspecified atrial fibrillation; E86.0 Dehydration; E86.1 Hypovolemia; I46.9 Cardiac arrest, cause unspecified; K76.0 Fatty (change of) liver, not elsewhere classified; Z88.5 Allergy status to narcotic agent; Z88.0 Allergy status to penicillin; Z88.8 Allergy status to other drugs, medicaments and biological substances; Z79.899 Other long term (current) drug therapy; Z79.891 Long term (current) use of opiate analgesic; Z82.49 Family history of ischemic heart disease and other diseases of the circulatory system; Z86.718 Personal history of other venous thrombosis and embolism; Z68.28 Body mass index [BMI] 28.0-28.9, adult; Z74.01 Bed confinement status; Z90.49 Acquired absence of other specified parts of digestive tract; Z95.828 Presence of other vascular implants and grafts
CPT/HCPCS: 31500; 36415; 36600; 71045; 71275; 76937; 80048; 80053; 80162; 81003; 82375; 82728; 82805; 83605; 83615; 83880; 84145; 84484; 85025; 85379; 86140; 87426; 93005; 94660; 99291; A6261; C1725; C1893; J0153; J0282; J0330; J0692; J1100; J1160; J1650; J1885; J1940; J1956; J2060; J2370; J3370; J3480; J3490; J7040; J7050; J7060; J7070; Q9967; U0003; U0005; A4315